=== PATIENT | male | born 2005 | race Caucasian/White ===

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

== ENCOUNTER 2025-08-29 09:58 | Emergency (ER) | payer MEDICAID ==
[~2025-08-29] VITALS: Ht 170.2 cm; Wt 83.6 kg
[2025-08-29 10:09] VITALS: BP 156/98; PULSE 102; RESP 18; TEMP 98.9; O2SAT 99
--- NOTE | 2025-08-29 10:12 | ED.PDOC ---
Foreign Body HPI Comments A 20 YEAR OLD MALE PRESENTS TO THE ED WITH COMPLAINT OF POSSIBLE FOREIGN BODY IN SKIN OF LEFT BUTTOCK. PATIENT STATES HE WAS INJECTING HIMSELF WITH HORMONES EARLIER TODAY AND THINKS PART OF THE NEEDLE HE WAS USING BROKE OFF UNDER HIS SKIN ON HIS LEFT BUTTOCK. PATIENT IS REQUESTING TO BE EVALUATED FOR A POSSIBLE FOREIGN BODY. PATIENT DENIES FEVER, CHILLS, SHORTNESS OF BREATH, CHEST PAIN, ABDOMINAL PAIN, NAUSEA, VOMITING, HEADACHE, OR OTHER COMPLAINTS. NO OTHER SYMPTOMS OR MODIFYING FACTORS AT THIS TIME. PATIENT IS ALERT, ORIENTED X 4, AND HAS STEADY GAIT. Chief Complaint: Foreign Body Time Seen by MD: 10:04 History of Present Illness: Nurses Notes, Medications, Allergies Allergies: Coded Allergies: NO KNOWN ALLERGIES (Unverified , 06/11/24) Information Source: Patient Mode of Arrival: Ambulatory Timing: Hours Duration: Since onset, Hours Severity: Moderate Ability to handle secretions: Normal Prehospital treatment: None Location: Left (LEFT BUTTOCK) Context: Accidental Foreign Body: Other (NEEDLE) Removal: Was not attempted Associated signs and symptoms: None Past Medical History PAST MEDICAL HISTORY: Denies Surgical History: Denies all surgeries Family History Family History: Reviewed,noncontributory to illness Social History Smoker: Non-Smoker Alcohol: Denies ETOH Use Drugs: Denies Drug Use Lives In: Home Constitutional: denies: chills, diaphoresis, fatigue, fever, malaise, sweats, weakness, others EENTM: denies: blurred vision, double vision, ear bleeding, ear discharge, ear drainage, ear pain, ear ringing, eye pain, eye redness, hearing loss, mouth pain, mouth swelling, nasal discharge, nose bleeding, nose congestion, nose pain, photophobia, tearing, throat pain, throat swelling, voice changes, others Respiratory: denies: cough, hemoptysis, orthopnea, SOB at rest, shortness of breath, SOB with excertion, stridor, wheezing, others Cardiovascular: denies: chest pain, dizzy spells, diaphoresis, Dyspnea on exertion, edema, irregular heart beat, left arm pain, lightheadedness, palpitations, PND, syncope, others Gastrointestinal: denies: abdomen distended, abdominal pain, blood streaked bowels, constipated, diarrhea, dysphagia, difficulty swallowing, hematemesis, melena, nausea, poor appetite, poor fluid intake, rectal bleeding, rectal pain, vomiting, others Genitourinary: denies: burning, dysuria, flank pain, frequency, hematuria, incontinence, penile discharge, penile sore, pain, testicle pain, testicle swelling, urgency, others Neurological: denies: dizziness, fainting, headache, left sided numbness, left sided weakness, numbness, paresthesia, pre-existing deficit, right sided numbness, right sided weakness, seizure, speech problems, tingling, tremors, weakness, others Musculoskeletal: denies: back pain, gout, joint pain, joint swelling, muscle pain, muscle stiffness, neck pain, others Integumetry: reports: others (POSSIBLE FOREIGN BODY OF LEFT BUTTOCK); denies: bruises, change in color, change in hair/nails, dryness, laceration, lesions, lumps, rash, wounds Allergic/Immunocompromised: denies: Difficulty Healing, Frequent Infections, Hives, Itching, others Hematologic/Lymphatic: denies: anemia, blood clots, easy bleeding, easy bruising, swollen glands, others Endocrine: denies: excessive hunger, excessive sweating, excessive thirst, excessive urination, flushing, intolerance to cold, intolerance to heat, unexplained weight gain, unexplained weight loss, others Psychiatric: denies: anxiety, bipolar disorder, depression, hopeless, panic disorder, schizophrenia, sleepless, suicidal, others All Other Systems: Reviewed and Negative Physical Exam General Appearance: No Apparent Distress, Normal HEENT: Normal ENT Inspection, PERRL/EOMI, Pharynx Normal, TMs Normal Neck: Full Range of Motion, Non-Tender, Normal, Normal Inspection Respiratory: Chest Non-Tender, Lungs Clear, No Accessory Muscle Use, No Respiratory Distress, Normal Breath Sounds Cardiovascular: No Edema, No JVD, No Murmur, No Gallop, Normal Peripheral Pulses, Regular Rate/Rhythm Breast Exam: Deferred Gastrointestinal: No Organomegaly, Non Tender, No Pulsatile Mass, Normal Bowel Sounds, Soft Genitalia: Deferred Pelvic: Deferred Rectal: Deferred Extremities: No calf tenderness, Normal capillary refill, Normal inspection, Normal range of motion, Non-tender, No pedal edema, Other (NO FB SEEN ON LEFT UPPER BUTTOCK, NO LOCALIZED REDNESS, SWELLING AND OPEN WOUND. NO TENDERNESS, REDNESS AND SWELLING ON LEFT BUTTOCK. ) Musculoskeletal : Apperance: Normal Neurologic: Alert, production artist II-XII nml as Tested, No Motor Deficits, Normal Affect, Normal Mood, No Sensory Deficits Cerebellar Function: Normal Reflexes: Normal Skin: Dry, Normal Color, Warm, Other (NO PUNCTURE WOUND, NO REDNESS AND FB PALPABLE ON LEFT UPPER BUTTOCK REGION. ) Peripheral Pulses: 2+ carotid (R), 2+ carotid (L), 2+ dorsalis pedis (R), 2+ dorsalis pedis (L) Lymphatic: No Adenopathy Was a procedure done? Was a procedure done?: No FB Differential Dx Differential Diagnosis: Foreign Body, Other (NO FB OF LEFT BUTTOCK) X-Ray, Labs, Meds, VS Vital Signs Date Time Temp Pulse Resp B/P (MAP) Pulse Ox O2 Delivery O2 Flow Rate FiO2 08/29/25 10:09 98.9 102 18 156/98 (117) 99 98.9 08/29/25 10:09 102 18 99 Room Air 08/29/25 09:59 97.9 102 18 156/98 99 97.9 ORDERING PHYSICIAN: LEONARDO OLIVERA PROCEDURE(s): PELVS - PELVIS AP REASON: POSSIBLE NEEDLE OF LEFT BUTTOCK POST INJECTION ORDER NUMBER(s): [id number], ACCESSION NUMBER(s): [id number] CLINICAL INDICATION: POSSIBLE NEEDLE OF LEFT BUTTOCK POST INJECTION TECHNIQUE: XY PELVIS AP COMPARISON: None FINDINGS/IMPRESSION: : There is no evidence of acute fracture or dislocation. Very subtle linear density in the left gluteal region measuring 3.4 cm in the region of interest. This is of uncertain etiology and may represent artifact versus foreign body. Clinical correlation advised. ATED BY: VIMAL AVERY MD DICTATED DATE/TIME: 08/29/25 1038 SIGNED BY: VIMAL AVERY MD SIGNED DATE/TIME: 08/29/25 1038 CC: X-Ray, Labs, Meds, VS Comment EXTERNAL MEDICAL RECORDS REVIEWED: [NONE] INDEPENDENT HISTORIANS: [NONE] SOCIAL DETERMINANTS OF HEALTH: [NONE] LABS ORDERED: NONE REVIEWED AND INTERPRETED RESULTS: NONE IMAGING ORDERED: XR PELVIS TREATMENTS ORDERED: NONE PROCEDURES PERFORMED: NONE CRITICAL CARE TIME: NONE I HAVE DISCUSSED THE PATIENT WITH THE ATTENDING PHYSICIAN DR. COLVIN AND HE AGREES WITH THE PATIENT'S PLAN OF CARE AND DISPOSITION. BASED ON HISTORY OF PRESENT ILLNESS, AND PHYSICAL EXAM, PATIENT WILL BE DISCHARGED HOME. SHARED DECISION MAKING: PATIENT INSTRUCTED TO FOLLOW UP WITH PRIMARY CARE PROVIDER IN 1-2 DAYS FOR RE-EVALUATION OF SYMPTOMS. PATIENT VERBALIZES UNDERST ANDING TO RETURN TO ED FOR NEW OR WORSENING SYMPTOMS OR IF FOLLOW UP WITH PCP CANNOT BE OBTAINED. PATIENT FEELS COMFORTABLE GOING HOME AT THIS TIME. ALL QUESTIONS ADDRESSED AT TIME OF DISCHARGE. Images Reviewed?: Images reviewed and evaluated by me Time of 1ST Reevaluation: 10:50 Reevaluation 1ST: Improved Patient Education/Counseling: Diagnosis, Treatment, Need For Follow Up Family Education/Counseling: Diagnosis, Treatment, Need For Follow Up Medical Screening: No EMC Exist At This Time Departure 1 Departure Time of Disposition: 11:00 Impression: Primary Impression: No foreign body found on evaluation Disposition: 01 HOME / SELF CARE / HOMELESS Condition: Stable Additional Instructions: FOLLOW-UP WITH PCP IN 1 TO 2 DAYS. RETURN TO ED FOR ANY NEW OR WORSENING SYMPTOMS. Discharged With: Self Critical Care Note Critical Care Time?: No Stability Stability form required: No I personally scribed for LEONARDO OLIVERA ([email or web address]) on 08/29/25 at 10:12. Electronically submitted by Feliberto Fonseca ([email or web address]). I personally scribed for LEONARDO OLIVERA ([email or web address]) on 08/29/25 at 10:46. Electronically submitted by Feliberto Fonseca ([email or web address]). LEONARDO OLIVERA Aug 29, 2025 10:12
--- NOTE | 2025-08-29 10:40 | DVH ---
CLINICAL INDICATION: POSSIBLE NEEDLE OF LEFT BUTTOCK POST INJECTION TECHNIQUE: XY PELVIS AP COMPARISON: None FINDINGS/IMPRESSION: : There is no evidence of acute fracture or dislocation. Very subtle linear density in the left gluteal region measuring 3.4 cm in the region of interest. This is of uncertain etiology and may represent artifact versus foreign body. Clinical correlation advised.
== END 2025-08-29 10:50 | disposition home or self-care (01) ==
LOC: ER 09:58
DX: T14.8XXA Other injury of unspecified body region, initial encounter (principal); X58.XXXA Exposure to other specified factors, initial encounter; Y93.89 Activity, other specified; Y92.89 Other specified places as the place of occurrence of the external cause; Y99.8 Other external cause status
CPT/HCPCS: 72170